=== PATIENT | male | born 1990 | race Caucasian/White ===

== ENCOUNTER → 2017-07-16 | Outpatient (CLI) | payer OTHER ==
--- NOTE | 2017-07-16 14:41 | DIAGNOSTIC IMAGING REPORT ---
MRI OF THE LUMBAR SPINE WITHOUT IV CONTRAST CLINICAL HISTORY: Chronic low back pain with lower extremity radiculopathy. COMPARISON STUDY: MRI of lumbar spine dated 04/14/2015. TECHNIQUE: MRI of the lumbar spine is performed utilizing various T1 and T2-weighted sequences in the axial and sagittal planes. IV contrast was not administered for this examination. FINDINGS: Lumbar spine: Vertebral body height and alignment are maintained throughout the lumbar spine. Normal marrow signal intensity is preserved throughout the imaged bony structures. There is mild straightening of the lumbar lordosis. The transverse and spinous processes appear intact. There is no evidence of spondylolysis. A tiny Schmorl's node is seen in the inferior endplate of L1. Intervertebral discs: Minimal degenerative disc desiccation is seen at L1-L2. The lumbar discs are otherwise normal In height and signal intensity. Spinal cord: The visualized spinal cord is normal in morphology and signal intensity. The conus medullaris terminates at the level of L1. The nerve roots of the cauda equina are normal in morphology. L1-L2: Unremarkable. L2-L3: Unremarkable. L3-L4: Minimal disc bulge is of no consequence. The central canal and neural foramina are widely patent. L4-L5: Minimal disc bulge is of no consequence. The central canal and neural foramina are widely patent. L5-S1: Minimal disc bulge is of no consequence. The central canal and neural foramina are widely patent. Soft tissues: The paraspinous soft tissues are normal in appearance. The partially imaged retroperitoneal structures are normal as visualized. Sacrum: The visualized sacrum is normal in morphology and signal intensity. A 7 mm Tarlov cyst is incidentally noted at the level of S2. IMPRESSION: 1. There is no disc herniation, central canal stenosis, or neural foraminal stenosis seen throughout the lumbar spine. 2. No osseous body is seen. 3. A Schmorl's node is present in the inferior endplate of L1. Dictated: 07/16/2017 2:19 PM Transcribed: 07/16/2017 2:40 PM [facility] Electronically signed by: Nitin Harris M.D. 07/16/2017 2:45 PM Dictated Date/Time: 07/16/2017 2:19 PM
--- NOTE | 2017-07-17 16:40 | PULMONARY FUNCTION TEST ---
CLINICAL DATA: 27-year-old male with a height of 73 inches and a weight of [address] Natacha Kim for shortness of breath while supine. Spirometry pre- and post-bronchodilator were performed. FINDINGS: Pre-bronchodilator spirometry is within normal limits. FVC was 120% of predicted. FEV1 was 106% of predicted. [id number] was 85% of predicted. There was slight improvement after inhaled bronchodilator. FVC improved 1% to 121% of predicted. FEV1 improved 5% to 111% of predicted. [id number] improved 16% to 98% of predicted. IMPRESSION: Normal baseline spirometry with slight improvement after inhaled bronchodilator. MTDD
== END | disposition home or self-care (01) ==
LOC: C.RC 12:46
PROVIDERS: ATTEND Family Medicine
DX: M54.42 Lumbago with sciatica, left side (principal)